=== PATIENT | female | born 1955 | race Caucasian/White ===

== ENCOUNTER → 2016-12-11 | Outpatient (CLI) | payer MEDICARE, BC ==
--- NOTE | 2016-12-11 09:08 | MR ---
EXAMINATION TYPE: MR brain wo con DATE OF EXAM: 12/11/2016 8:33 AM. COMPARISON: Previous study dated 11/15/2015. HISTORY: Headaches Technique: Multiplanar, multiecho imaging of the brain was obtained without intravenous contrast on a 3 Rasheeda magnet. FINDINGS: Midline structures are unremarkable. There is a normal craniocervical junction. Echoplanar diffusion imaging is normal. There are normal vascular flow voids. The orbits are normal. There is no evidence of a CP angle mass lesion. There are innumerable areas of T2 and FLAIR hyperinte nsity throughout the deep white matter tracts of the cerebral hemispheres. These are similar in size and number to the previous study. The largest 2 lesions are adjacent to the frontal horns of the late ral ventricles bilaterally. The lesion on the right measures 13.5 mm. The lesion on the left measures 10.6 mm. These are best seen on image 20 of the FLAIR dataset. The third, 8.4 mm lesion is seen in t he leigh radiata on the left. All of the other lesions are smaller than a centimeter. There is no ma ss effect, midline shift or intracranial blood. IMPRESSION: 1. NO ACUTE INTRACRANIAL ABNORMALITY. 2. MULTIPLE, STABLE FLAIR HYPERINTENSE LESIONS THROUGHOUT THE DEEP WHITE MATTER TRACTS OF THE CEREBRA L HEMISPHERES THESE ARE NONSPECIFIC.
== END | disposition home or self-care (01) ==
LOC: RADMRIMAIN 07:50
PROVIDERS: ATTEND Psychiatry & Neurology Neurology
DX: R90.82 White matter disease, unspecified (principal); H53.8 Other visual disturbances; R51 Headache
CPT/HCPCS: 70551

== ENCOUNTER → 2017-06-02 | Outpatient (CLI) | payer MEDICARE, BC ==
[2017-06-02 12:51] LABS: Blood Urea Nitrogen 20 mg/dL (7-17); Non-African American GFR(MDRD) >60 (>60 ml/min/1.73 sqM)
== END | disposition home or self-care (01) ==
LOC: LABWHC1 12:25
PROVIDERS: ATTEND Nurse Practitioner Acute Care
DX: M54.2 Cervicalgia (principal); R90.82 White matter disease, unspecified
CPT/HCPCS: 36415; 82565; 84520

== ENCOUNTER → 2017-06-04 | Outpatient (CLI) | payer MEDICARE, BC ==
--- NOTE | 2017-06-04 11:57 | MR ---
EXAMINATION TYPE: MR brain wo/w louiseine wo DATE OF EXAM: 06/04/2017 COMPARISON: Prior brain MRI dated 12/11/2016 HISTORY: WHITE MATTER CHANGE, CERVICAL PAIN TECHNIQUE: Multiplanar, multisequence images of the brain and brainstem is performed without and with IV contras t, utilizing 15 mL intravenous MultiHance , multiplanar multisequence imaging through the cervical sp ine without contrast. FINDINGS: There is motion on the exam. Brain: Diffusion weighted images demonstrate no evidence of a recent infarct. There is no extra-axia l fluid collection or significant interval change in white matter signal abnormality. Scattered hype rintensities are again noted in the deep, periventricular, juxtacortical white matter on inversion re covery and T2-weighted sequences, number lesions is too numerous to count. The ventricular system and cisternal spaces are normal in size and appearance. The brain volume is age appropriate. Midline structures demonstrate normal morphology. The craniocervical junction appears within normal limits. Post contrast images demonstrate no abnormal enhancement. The dural venous sinuses appear pa tent. The visualized sinuses are clear and the globes are intact. IMPRESSION: Essentially stable brain MRI Cervical spine MRI: Cervical vertebral bodies show preserved height and alignment. There is multileve l spondylosis present, there is endplate discogenic marrow signal change and loss of disc height and signal especially at C5-6 and C6-7. Anterolisthesis grade 1 C7-T1 with associated loss of disc height and signal. Probable hemangioma within the third cervical vertebral body. Cervical cord signal maint ained at C1-C5. C2-3: Within normal limits C3-4: Small central posterior disc protrusion causes minimal anterior mass effect on the thecal sac. Lateral extension of endplate disc complex towards the left causes some minimal foraminal encroachmen t. C4-5: Foraminal encroachment is present left greater than right, there is facet arthropathy change, n o significant central stenosis.. Small central posterior disc bulge causes minimal anterior mass effe ct on the thecal sac. C5-6: Posterior extension of endplate disc complex may contact the anterior cervical cord. Only minim al central stenosis. Lateral extension of endplate disc complex causes bilateral foraminal encroachme nt. C6-7: Posterior broad-based endplate disc extension is eccentric somewhat towards the right causing f oraminal encroachment right greater than left, mild anterior mass effect on the thecal sac but no sig nificant central stenosis. Some artifact is present at the C6-7 level, difficult to exclude signal co rd change. C7-T1: No significant central canal stenosis or foraminal encroachment, no evident disc herniation. IMPRESSION: Some limitations to the evaluation of the cervical cord as described. Multilevel degenera tive disc disease, foraminal encroachment. IMPRESSION:
== END | disposition home or self-care (01) ==
LOC: RADMRIMAIN 09:06
PROVIDERS: ATTEND Nurse Practitioner Acute Care
DX: M50.30 Other cervical disc degeneration, unspecified cervical region (principal); R90.82 White matter disease, unspecified
CPT/HCPCS: 70553; 72141; A9577

== ENCOUNTER → 2017-06-18 | Outpatient (CLI) | payer MEDICARE, BC ==
[2017-06-18 11:33] LABS: Basophils # (A) 0.1 k/uL (0-0.2); Basophils % (A) 1 %; CH 33.9; CHCM 31.6; Eosinophils # (A) 0.3 k/uL (0-0.7); Eosinophils % (A) 5 %; HCT 44.2 % (34.0-46.0); HDW 2.27; HGB 13.5 gm/dL (11.4-16.0); Luc % (Auto) 4; Lymphocytes # (A) 1.8 k/uL (1.0-4.8); Lymphocytes % (A) 32 %; MCH 32.9 pg (25.0-35.0); MCHC 30.5 g/dL (31.0-37.0); MCV 107.7 fL (80.0-100.0); Macrocytosis Moderate; Mean Platelet Volume 7.5; Monocytes # (A) 0.3 k/uL (0-1.0); Monocytes % (A) 5 %; Neutrophils % (A) 54 %; RBC 4.11 m/uL (3.80-5.40); RDW 14.4 % (11.5-15.5); WBC 5.7 k/uL (3.8-10.6); WBC (Perox) 5.93
[2017-06-18 12:05] LABS: ALT 60 U/L (9-52); AST 26 U/L (14-36); Alkaline Phosphatase 77 U/L (38-126); Anion Gap 9 mmol/L; Blood Urea Nitrogen 16 mg/dL (7-17); Calcium 9.4 mg/dL (8.4-10.2); Carbon Dioxide 25 mmol/L (22-30); Chloride 108 mmol/L (98-107); Glucose 95 mg/dL (74-99); Non-African American GFR(MDRD) >60 (>60 ml/min/1.73 sqM); Potassium 4.6 mmol/L (3.5-5.1); Sodium 142 mmol/L (137-145); Total Bilirubin 0.4 mg/dL (0.2-1.3); Total Protein 6.6 g/dL (6.3-8.2)
[2017-06-18 12:45] LABS: Vitamin B12 465 pg/mL (239-931)
== END | disposition home or self-care (01) ==
LOC: LABWHC1 10:50
PROVIDERS: ATTEND Nurse Practitioner Acute Care
DX: G35 Multiple sclerosis (principal); E55.9 Vitamin D deficiency, unspecified; R53.83 Other fatigue
CPT/HCPCS: 36415; 80053; 82306; 82607; 84439; 84443; 84481; 85025

== ENCOUNTER → 2017-07-05 | Outpatient (CLI) | payer MEDICARE, BC ==
--- NOTE | 2017-07-05 10:09 | MR ---
EXAMINATION TYPE: MR cervical spine w con DATE OF EXAM: 07/05/2017 COMPARISON: Cervical spine without contrast 06/04/2017 HISTORY: 61-year-old female with neck pain, Cervicalgia, white matter changes Technique: Multiplanar, multisequence images of the cervical spine were obtained after administration of 7 mL intravenous Gadavist gadolinium contrast. FINDINGS: No craniocervical junction abnormality, predental space widening, or prevertebral soft tissue swellin g. When correlated with prior noncontrast MRI, there is mild heterogeneity of marrow signal without susp icious bone marrow replacement. Moderate multilevel degenerative disc disease particularly in the mid to lower cervical spine with re demonstrated disc osteophyte complex at C5-C6 causing mild spinal canal stenosis with abutment and sl ight flattening of the ventral cord. Trace grade 1 anterolisthesis at C7-T1 is unchanged. Foraminal encroachment described on prior MRI. No abnormal enhancement within the spinal canal or suspicious cord enhancement is identified. IMPRESSION: 1. Only contrast enhanced images for correlation with patient's recent 06/04/2017 noncontrast MRI. 2. No abnormal cord enhancement or suspicious enhancement within the spinal canal. 3. Degenerative changes with variable foraminal encroachment described on prior MRI. Mild spinal aditi l stenosis at C5-C6 with abutment and slight flattening of the ventral cord at this level.
== END | disposition home or self-care (01) ==
LOC: RADMRIMAIN 08:49
PROVIDERS: ATTEND Nurse Practitioner Acute Care
DX: M48.02 Spinal stenosis, cervical region (principal)
CPT/HCPCS: 72142; A9581

== ENCOUNTER → 2017-11-16 | Outpatient (CLI) | payer MEDICARE ==
[2017-11-16 15:30] LABS: Basophils # (A) 0.1 k/uL (0-0.2); Basophils % (A) 1 %; Eosinophils # (A) 0.3 k/uL (0-0.7); Eosinophils % (A) 3 %; HCT 47.5 % (34.0-46.0); HGB 14.8 gm/dL (11.4-16.0); Lymphocytes # (A) 1.9 k/uL (1.0-4.8); Lymphocytes % (A) 23 %; MCH 32.1 pg (25.0-35.0); MCHC 31.2 g/dL (31.0-37.0); MCV 102.9 fL (80.0-100.0); Macrocytosis Slight; Mean Platelet Volume 7.4; Monocytes # (A) 0.4 k/uL (0-1.0); Monocytes % (A) 4 %; Neutrophils # (A) 5.4 k/uL (1.3-7.7); Neutrophils % (A) 66 %; Platelet Count 444 k/uL (150-450); RBC 4.62 m/uL (3.80-5.40); RDW 13.3 % (11.5-15.5); WBC 8.3 k/uL (3.8-10.6)
[2017-11-16 15:48] LABS: ALT 28 U/L (9-52); AST 26 U/L (14-36); Albumin 4.6 g/dL (3.5-5.0); Alkaline Phosphatase 79 U/L (38-126); Anion Gap 11 mmol/L; Blood Urea Nitrogen 21 mg/dL (7-17); Calcium 9.8 mg/dL (8.4-10.2); Carbon Dioxide 26 mmol/L (22-30); Chloride 102 mmol/L (98-107); Glucose 92 mg/dL (74-99); Potassium 4.7 mmol/L (3.5-5.1); Sodium 139 mmol/L (137-145); Total Bilirubin 0.6 mg/dL (0.2-1.3); Total Protein 7.5 g/dL (6.3-8.2)
== END | disposition home or self-care (01) ==
LOC: LABWHC1 14:00
PROVIDERS: ATTEND Nurse Practitioner Acute Care
DX: Z01.812 Encounter for preprocedural laboratory examination (principal); I49.9 Cardiac arrhythmia, unspecified; G35 Multiple sclerosis
CPT/HCPCS: 36415; 80053; 85025; 86787; 93005

== ENCOUNTER → 2017-12-05 | Outpatient (CLI) | payer MEDICARE | END | disposition home or self-care (01) | LOC: LABWHC1 15:25 | PROVIDERS: ATTEND Psychiatry & Neurology Neurology | DX: Z01.812 Encounter for preprocedural laboratory examination (principal); G35 Multiple sclerosis | CPT/HCPCS: 36415; 86787 ==

== ENCOUNTER → 2017-12-25 | Outpatient (CLI) | payer MEDICARE | END | disposition home or self-care (01) | LOC: LABWHC1 10:47 | PROVIDERS: ATTEND Nurse Practitioner Acute Care | DX: G35 Multiple sclerosis (principal) | CPT/HCPCS: 36415 ==

== ENCOUNTER → 2018-01-10 | Outpatient (CLI) | payer MEDICARE ==
[2018-01-10 10:40] LABS: Basophils % (A) 1 %; Eosinophils # (A) 0.3 k/uL (0-0.7); Eosinophils % (A) 7 %; HCT 41.7 % (34.0-46.0); HGB 13.1 gm/dL (11.4-16.0); Lymphocytes # (A) 0.6 k/uL (1.0-4.8); Lymphocytes % (A) 12 %; MCH 31.8 pg (25.0-35.0); MCHC 31.5 g/dL (31.0-37.0); MCV 100.8 fL (80.0-100.0); Macrocytosis Slight; Mean Platelet Volume 7.6; Monocytes # (A) 0.4 k/uL (0-1.0); Monocytes % (A) 9 %; Neutrophils # (A) 3.2 k/uL (1.3-7.7); Neutrophils % (A) 67 %; Platelet Count 400 k/uL (150-450); RBC 4.14 m/uL (3.80-5.40); RDW 14.2 % (11.5-15.5); WBC 4.7 k/uL (3.8-10.6)
== END | disposition home or self-care (01) ==
LOC: LABWHC1 09:58
PROVIDERS: ATTEND Psychiatry & Neurology Neurology
DX: G35 Multiple sclerosis (principal)
CPT/HCPCS: 36415; 85025

== ENCOUNTER → 2018-04-04 | Outpatient (CLI) | payer MEDICARE ==
[2018-04-04 12:37] LABS: Albumin 4.4 g/dL (3.5-5.0); Calcium 9.3 mg/dL (8.4-10.2); Potassium 4.9 mmol/L (3.5-5.1); Total Bilirubin 0.4 mg/dL (0.2-1.3); Total Protein 6.8 g/dL (6.3-8.2)
[2018-04-04 14:14] LABS: Basophils % (A) 1 %; Eosinophils # (A) 0.2 k/uL (0-0.7); Eosinophils % (A) 7 %; HCT 42.7 % (34.0-46.0); HGB 13.6 gm/dL (11.4-16.0); Hypochromasia Moderate; Lymphocytes # (A) 0.4 k/uL (1.0-4.8); Lymphocytes % (A) 11 %; MCH 34.4 pg (25.0-35.0); MCV 107.6 fL (80.0-100.0); Macrocytosis Moderate; Mean Platelet Volume 7.6; Monocytes # (A) 0.3 k/uL (0-1.0); Monocytes % (A) 9 %; Neutrophils # (A) 2.1 k/uL (1.3-7.7); Neutrophils % (A) 68 %; Platelet Count 327 k/uL (150-450); RBC 3.97 m/uL (3.80-5.40); RDW 13.4 % (11.5-15.5); WBC 3.1 k/uL (3.8-10.6)
== END | disposition home or self-care (01) ==
LOC: LABWHC1 11:34
PROVIDERS: ATTEND Nurse Practitioner Acute Care
DX: E55.9 Vitamin D deficiency, unspecified (principal); R53.83 Other fatigue
CPT/HCPCS: 36415; 80053; 82306; 85025

== ENCOUNTER → 2018-05-10 | Outpatient (CLI) | payer MEDICARE ==
[2018-05-10 09:08] LABS: HCT 42.3 % (34.0-46.0); HGB 13.6 gm/dL (11.4-16.0); MCHC 32.2 g/dL (31.0-37.0); Macrocytosis Slight; Mean Platelet Volume 6.9; Platelet Count 387 k/uL (150-450); RBC 4.13 m/uL (3.80-5.40); RDW 13.6 % (11.5-15.5); WBC 2.9 k/uL (3.8-10.6)
[2018-05-10 09:09] LABS: Blood Urea Nitrogen 11 mg/dL (7-17)
[2018-05-10 09:12] LABS: MCV 102.5 fL (80.0-100.0)
[2018-05-10 09:39] LABS: Basophils # (M) 0.03 k/uL (0-0.2); Eosinophils # (M) 0.29 k/uL (0-0.7); Lymphocytes # (M) 0.26 k/uL (1.0-4.8); Monocytes # (M) 0.35 k/uL (0-1.0); Neutrophils # (M) 1.97 k/uL (1.3-7.7); Neutrophils % (M) 68 %; Nucleated Red Blood Cells 0 /100 WBC (0-0); Total Cells Counted 100
--- NOTE | 2018-05-10 12:24 | MR ---
EXAMINATION TYPE: MR brain/cspine wo/w DATE OF EXAM: 05/10/2018 COMPARISON: Prior MR brain and cervical spine 06/04/2017 HISTORY: White matter changes / Cervicalgia TECHNIQUE: Multiplanar, multisequence images of the brain and brainstem is performed without and with IV contras t, utilizing 7 mL intravenous Gadavist . FINDINGS: Patient shows motion during the exam. Brain MRI: Diffusion weighted images demonstrate no evidence of a recent infarct or other diffusion abnormality. There is no extra-axial fluid collection. There are too numerous to count white matter lesions wit hin the subcortical, periventricular, juxtacortical, pericallosal white matter as on prior exam, prev iously estimated at approximately 50 lesions. Left frontal lesion measures 6 mm on axial image 24 and measures 5 mm on prior exam. Right frontal lesion measured approximately 6 x 6.5 mm on prior, on axi al image 23 of the current exam the lesion is thought to represent confluence foci and measures appro ximately 5 mm x 6.5 mm x 5.2 mm. The previously measured lesion on axial image 20 now measures approx imately 6.5 x 7.5 mm which is increased compared to prior when it measured 6.3 x 6.7mm. There are add itional lesions which have grown in size and become more conspicuous. The ventricular system and cist ernal spaces are stable in size and appearance. The brain volume is stable. Midline structures demonstrate normal morphology. The craniocervical junction appears within normal limits. Post contrast images demonstrate no abnormal enhancement, no lesions are seen to enhance alt artis there is artifact on the exam. The dural venous sinuses appear patent. The visualized sinuses a re clear and the globes are intact. Cervical spine MRI: There is no significant interval change. Posterior extension of endplate disc com plex C5-6 causes anterior mass effect on the thecal sac, neural foraminal encroachment as on previous exam, C6-7 also shows posterior extension of endplate disc complex with foraminal encroachment simil ar to prior. There is no abnormal enhancement grossly. IMPRESSION: Stable findings. Exam is somewhat limited. No evident enhancing lesions. Degenerative dis c disease.
== END | disposition home or self-care (01) ==
LOC: RADMRIMAIN 08:23
PROVIDERS: ATTEND Nurse Practitioner Acute Care
DX: M50.30 Other cervical disc degeneration, unspecified cervical region (principal); R90.82 White matter disease, unspecified; D72.810 Lymphocytopenia
CPT/HCPCS: 82565; 84520; 85025; 70553; 72156; 36415; A9581

== ENCOUNTER → 2018-06-04 | Outpatient (CLI) | payer MEDICARE ==
[2018-06-04 16:03] LABS: Basophils % (A) 1 %; Eosinophils # (A) 0.2 k/uL (0-0.7); Eosinophils % (A) 4 %; HCT 42.7 % (34.0-46.0); HGB 13.7 gm/dL (11.4-16.0); Lymphocytes # (A) 0.9 k/uL (1.0-4.8); Lymphocytes % (A) 19 %; MCH 32.7 pg (25.0-35.0); MCV 102.2 fL (80.0-100.0); Macrocytosis Slight; Mean Platelet Volume 6.7; Monocytes # (A) 0.3 k/uL (0-1.0); Monocytes % (A) 7 %; Neutrophils % (A) 67 %; Platelet Count 421 k/uL (150-450); RBC 4.18 m/uL (3.80-5.40); RDW 13.8 % (11.5-15.5); WBC 4.5 k/uL (3.8-10.6)
== END | disposition home or self-care (01) ==
LOC: LABWHC1 15:34
PROVIDERS: ATTEND Nurse Practitioner Acute Care
DX: Z51.81 Encounter for therapeutic drug level monitoring (principal)
CPT/HCPCS: 36415; 85025

== ENCOUNTER → 2018-08-22 | Outpatient (CLI) | payer MEDICARE ==
[2018-08-22 12:38] LABS: Basophils % (A) 1 %; Eosinophils # (A) 0.2 k/uL (0-0.7); Eosinophils % (A) 5 %; HCT 42.1 % (34.0-46.0); HGB 12.8 gm/dL (11.4-16.0); Hypochromasia Slight; Lymphocytes # (A) 0.4 k/uL (1.0-4.8); Lymphocytes % (A) 9 %; MCH 32.6 pg (25.0-35.0); MCHC 30.4 g/dL (31.0-37.0); MCV 107.2 fL (80.0-100.0); Macrocytosis Moderate; Monocytes # (A) 0.3 k/uL (0-1.0); Monocytes % (A) 6 %; Neutrophils # (A) 3.5 k/uL (1.3-7.7); Neutrophils % (A) 76 %; Platelet Count 401 k/uL (150-450); RBC 3.93 m/uL (3.80-5.40); RDW 13.6 % (11.5-15.5); WBC 4.7 k/uL (3.8-10.6)
[2018-08-22 19:02] LABS: Albumin 4.3 g/dL (3.80-4.90); Albumin/Globulin Ratio 2.26 (1.20-2.10); Anion Gap 3.5 mmol/L (4.00-12.00); Calcium 8.9 mg/dL (8.7-10.3); Carbon Dioxide 28.5 mmol/L (21.6-31.8); Globulin 1.9 g/dL (2.1-3.7); Potassium 4.4 mmol/L (3.5-5.5); Total Bilirubin 0.4 mg/dL (0.2-1.2); Total Protein 6.2 g/dL (6.2-8.2)
[2018-08-22 22:26] LABS: Vitamin D 25 Hydroxy 35.4 ng/mL (30.0-100.0)
== END ==
LOC: LABWHC1 11:17
PROVIDERS: ATTEND Nurse Practitioner Acute Care
DX: E55.9 Vitamin D deficiency, unspecified (principal); R53.83 Other fatigue; Z51.81 Encounter for therapeutic drug level monitoring
CPT/HCPCS: 36415; 80053; 82306; 82607; 84207; 85025

== ENCOUNTER → 2018-10-17 | Outpatient (CLI) | payer MEDICARE ==
[2018-10-17 17:04] LABS: Basophils % (A) 0 %; Eosinophils # (A) 0.2 k/uL (0-0.7); Eosinophils % (A) 5 %; HCT 42.9 % (34.0-46.0); HGB 13.3 gm/dL (11.4-16.0); Lymphocytes # (A) 0.3 k/uL (1.0-4.8); Lymphocytes % (A) 8 %; MCH 32.9 pg (25.0-35.0); MCHC 31.1 g/dL (31.0-37.0); MCV 105.8 fL (80.0-100.0); Macrocytosis Moderate; Mean Platelet Volume 7.6; Monocytes # (A) 0.3 k/uL (0-1.0); Monocytes % (A) 7 %; Neutrophils # (A) 2.9 k/uL (1.3-7.7); Neutrophils % (A) 76 %; Platelet Count 420 k/uL (150-450); RBC 4.06 m/uL (3.80-5.40); RDW 13.2 % (11.5-15.5); WBC 3.8 k/uL (3.8-10.6)
[2018-10-18 03:19] LABS: Vitamin D 25 Hydroxy 31.6 ng/mL (30.0-100.0)
[2018-10-18 03:25] LABS: Albumin 4.4 g/dL (3.80-4.90); Albumin/Globulin Ratio 2.59 (1.20-2.10); Anion Gap 7.3 mmol/L (4.00-12.00); Calcium 8.9 mg/dL (8.7-10.3); Carbon Dioxide 24.7 mmol/L (21.6-31.8); Globulin 1.7 g/dL (1.6-3.3); Potassium 4.7 mmol/L (3.5-5.5); Total Bilirubin 0.4 mg/dL (0.3-1.2); Total Protein 6.1 g/dL (6.2-8.2)
== END | disposition home or self-care (01) ==
LOC: LABWHC1 16:23
PROVIDERS: ATTEND Nurse Practitioner Acute Care
DX: R53.83 Other fatigue (principal); E55.9 Vitamin D deficiency, unspecified; Z51.81 Encounter for therapeutic drug level monitoring
CPT/HCPCS: 36415; 80053; 82306; 82607; 84207; 85025

== ENCOUNTER → 2018-11-18 | Outpatient (CLI) | payer MEDICARE ==
[2018-11-18 13:10] LABS: Basophils % (A) 0 %; Eosinophils # (A) 0.3 k/uL (0-0.7); Eosinophils % (A) 3 %; HCT 45.2 % (34.0-46.0); HGB 14.1 gm/dL (11.4-16.0); Lymphocytes # (A) 0.6 k/uL (1.0-4.8); Lymphocytes % (A) 7 %; MCH 32.1 pg (25.0-35.0); MCHC 31.1 g/dL (31.0-37.0); MCV 103.2 fL (80.0-100.0); Macrocytosis Slight; Mean Platelet Volume 6.7; Monocytes # (A) 0.5 k/uL (0-1.0); Monocytes % (A) 6 %; Neutrophils # (A) 6.3 k/uL (1.3-7.7); Neutrophils % (A) 82 %; Platelet Count 440 k/uL (150-450); RBC 4.38 m/uL (3.80-5.40); RDW 13.9 % (11.5-15.5); WBC 7.7 k/uL (3.8-10.6)
== END ==
LOC: LABWHC1 11:59
PROVIDERS: ATTEND Nurse Practitioner Acute Care
DX: Z51.81 Encounter for therapeutic drug level monitoring (principal); R53.83 Other fatigue
CPT/HCPCS: 36415; 85025

== ENCOUNTER 2019-01-23 14:55 | Emergency (ER) | payer MEDICARE ==
[2019-01-23 15:07] VITALS: RESP 18; TEMP 97.5
[2019-01-23] MEDS ORDERED: HYDROmorphone 0.5 MG/0.5 ML SYRINGE IVP STA (15:35)
[2019-01-23] MEDS ORDERED: diphenhydrAMINE 50 MG/ML 1 ML VIAL IVP STA (15:35)
[2019-01-23] MEDS ORDERED: SODIUM CHLORIDE 0.9% 500 ML 500 ML IV STA (15:35)
[2019-01-23] MEDS ORDERED: METOCLOPRAMIDE 5 MG/ML 2 ML VIAL IVP STA (15:35)
--- NOTE | 2019-01-23 15:38 | ED ---
General Adult HPI - General Source: patient, RN notes reviewed, old records reviewed Mode of arrival: ambulatory Limitations: no limitations <Andrea Rosales - Last Filed: 01/23/19 16:35> <Prince Edwards - Last Filed: 01/23/19 18:18> - General Chief complaint: Recheck/Abnormal Lab/Rx Stated complaint: elevated BP Time Seen by Provider: 01/23/19 15:30 - History of Present Illness Initial comments: 63 -year-old female presenting with chief complaint of hypertension. Patient has history of hypertension, currently on Benzapril, losartan, metoprolol. She states she has had elevated pressure over the past one week. She was seen by her neurologist, and recommended that she monitor her blood pressure and presented for evaluation. She does see a neurologist for history of MS and chronic headaches. She states she's had worsening occipital headache over the past week as well. She's had some nausea without significant vomiting. Denies any focal numbness or weakness. Denies vision changes. Denies chest pain or dyspnea. Denies abdominal pain. (Andrea Rosales) - Related Data Home Medications Medication Instructions Recorded Confirmed DULoxetine HCL [Cymbalta] 60 mg PO BID 09/18/16 01/23/19 Metoprolol Succinate [Toprol XL] 100 mg PO DAILY 09/18/16 01/23/19 Topiramate [Topamax] 100 mg PO BID 09/18/16 01/23/19 oxyCODONE-APAP 10-325MG [Percocet 1 tab PO Q6HR PRN 09/18/16 01/23/19 10-325 mg] Benazepril HCl 20 mg PO DAILY 05/21/17 01/23/19 Ascorbic Acid [Vitamin C] 1,000 mg PO DAILY 01/23/19 01/23/19 Butalb/APAP/Caff 50-325-40Mg 1 tab PO Q6H PRN 01/23/19 01/23/19 [Fioricet 50-325-40] Cholecalciferol [Vitamin D3] 2,000 unit PO DAILY 01/23/19 01/23/19 Fingolimod HCl [Gilenya] 0.5 mg PO HS 01/23/19 01/23/19 Levothyroxine Sodium [Synthroid] 125 mcg PO DAILY 01/23/19 01/23/19 Modafinil [Provigil] 100 mg PO BID 01/23/19 01/23/19 Multivitamins, Thera [Multivitamin 1 tab PO DAILY 01/23/19 01/23/19 (formulary)] Omeprazole 20 mg PO DAILY 01/23/19 01/23/19 Primidone [Mysoline] 50 mg PO HS 01/23/19 01/23/19 Vitamin A 8,000 unit PO DAILY 01/23/19 01/23/19 Vitamin C/Biotin [Hair, Skin and 1 tab PO DAILY 01/23/19 01/23/19 Nails] tiZANidine HCL [Zanaflex] 4 mg PO BID PRN 01/23/19 01/23/19 Previous Rx's Medication Instructions Recorded Losartan [Cozaar] 50 mg PO BID #60 tab 11/19/15 Allergies Allergy/AdvReac Type Severity Reaction Status Date / Time No Known Allergies Allergy Verified 01/23/19 16:29 Review of Systems ROS Other: All systems not noted in ROS Statement are negative. <Andrea Rosales - Last Filed: 01/23/19 16:35> ROS Other: All systems not noted in ROS Statement are negative. <Prince Edwards - Last Filed: 01/23/19 18:18> ROS Statement: Those systems with pertinent positive or pertinent negative responses have been documented in the HPI. Past Medical History Past Medical History: Fibromyalgia, GERD/Reflux, Hypertension, Thyroid Disorder Additional Past Medical History / Comment(s): Lung cancer, Thyroid cancer, Known cancerous lesions to right lung - no tx yet ., LAST CHEMO & RADIATION APPROX 8 YEARS AGO., MIGRAINES, HX OF DIVERTICULITIS. History of Any Multi-Drug Resistant Organisms: None Reported Past Surgical History: Hysterectomy, Tubal Ligation Additional Past Surgical History / Comment(s): thyroidectomy for ca, three lumpectomies from breast, ectopic , left frontal lobe of lung, portion of colon removed. Past Anesthesia/Blood Transfusion Reactions: No Reported Reaction Past Psychological History: Anxiety Smoking Status: Current every day smoker Past Alcohol Use History: Occasional Past Drug Use History: None Reported - Past Family History Mother Family Medical History: Cancer, Diabetes Mellitus, Fibromyalgia, Thyroid Disorder Additional Family Medical History / Comment(s): heart issues. THYROID CANCER Father Family Medical History: Cancer Additional Family Medical History / Comment(s): lung cancer <Andera Rosales N - Last Filed: 01/23/19 16:35> General Exam Limitations: no limitations General appearance: alert, in no apparent distress Head exam: Present: atraumatic, normocephalic Eye exam: Present: normal appearance, PERRL, EOMI ENT exam: Present: normal exam Neck exam: Present: normal inspection. Absent: tenderness, meningismus Respiratory exam: Present: normal lung sounds bilaterally. Absent: respiratory distress, wheezes Cardiovascular Exam: Present: regular rate, normal rhythm GI/Abdominal exam: Present: soft. Absent: distended, tenderness Extremities exam: Present: normal inspection, normal capillary refill. Absent: pedal edema Neurological exam: Present: alert, oriented X3, CN II-XII intact. Absent: motor sensory deficit Psychiatric exam: Present: normal affect, normal mood Skin exam: Present: warm, dry, intact. Absent: cyanosis, diaphoretic <Andrea Rosales - Last Filed: 01/23/19 16:35> General appearance: alert, in no apparent distress Head exam: Present: atraumatic, normocephalic, normal inspection Eye exam: Present: normal appearance, PERRL, EOMI. Absent: scleral icterus, conjunctival injection, periorbital swelling ENT exam: Present: normal exam, mucous membranes moist Neck exam: Present: normal inspection. Absent: tenderness, meningismus, lymphadenopathy Respiratory exam: Present: normal lung sounds bilaterally. Absent: respiratory distress, wheezes, rales, rhonchi, stridor Cardiovascular Exam: Present: regular rate, normal rhythm, normal heart sounds. Absent: systolic murmur, diastolic murmur, rubs, gallop, clicks GI/Abdominal exam: Present: soft, normal bowel sounds. Absent: distended, tenderness, guarding, rebound, rigid Extremities exam: Present: normal inspection, full ROM, normal capillary refill. Absent: tenderness, pedal edema, joint swelling, calf tenderness Back exam: Present: normal inspection Neurological exam: Present: alert, oriented X3, CN II-XII intact Psychiatric exam: Present: normal affect, normal mood Skin exam: Present: warm, dry, intact, normal color. Absent: rash <Prince Edwards - Last Filed: 01/23/19 18:18> Course <Andrea Rosales - Last Filed: 01/23/19 16:35> Vital Signs 01/23/19 01/23/19 01/23/19 15:04 17:07 17:55 Temperature 97.5 F L Pulse Rate 66 61 72 Respiratory 18 18 18 Rate Blood Pressure 181/103 185/106 190/105 O2 Sat by Pulse 98 98 100 Oximetry - Reevaluation(s) Reevaluation #1: 01/23/19 1700 Patient's care signed out to Dr. Edwards at shift change (Andrea Rosales) EKG Findings - EKG Comments: EKG Findings:: EKG: Normal sinus rhythm, rate of 63, NE interval 132, QRS duration 88, QTC 417, no ST segment changes <Andrea Rosales - Last Filed: 01/23/19 16:35> Medical Decision Making - Lab Data Result diagrams: 01/23/19 16:00 01/23/19 16:00 <Andrea Rosales - Last Filed: 01/23/19 16:35> - Lab Data Result diagrams: 01/23/19 16:00 01/23/19 16:00 - Radiology Data Radiology results: report reviewed (CT brain negative for acute disease), image reviewed <Prince Edwards - Last Filed: 01/23/19 18:18> - Medical Decision Making 61 female the ER for evaluation, elevated blood pressure. Headache. CT labwork are normal. Patient's blood pressures improved here will follow-up with primary care for further blood pressure management (Prince Edwards) - Lab Data Lab Results 01/23/19 01/23/19 01/23/19 Range/Units 16:00 16:00 16:00 WBC 3.9 (3.8-10.6) k/uL RBC 4.23 (3.80-5.40) m/uL Hgb 13.6 (11.4-16.0) gm/dL Hct 41.8 (34.0-46.0) % MCV 98.8 (80.0-100.0) fL MCH 32.3 (25.0-35.0) pg MCHC 32.7 (31.0-37.0) g/dL RDW 14.3 (11.5-15.5) % Plt Count 439 (150-450) k/uL Neutrophils % 67 % Lymphocytes % 13 % Monocytes % 10 % Eosinophils % 7 % Basophils % 1 % Neutrophils # 2.6 (1.3-7.7) k/uL Lymphocytes # 0.5 L (1.0-4.8) k/uL Monocytes # 0.4 (0-1.0) k/uL Eosinophils # 0.3 (0-0.7) k/uL Basophils # 0.0 (0-0.2) k/uL PT 10.7 (9.0-12.0) sec INR 1.0 (<1.2) APTT 27.5 (22.0-30.0) sec Sodium 138 (137-145) mmol/L Potassium 5.9 H (3.5-5.1) mmol/L Chloride 103 (98-107) mmol/L Carbon Dioxide 26 (22-30) mmol/L Anion Gap 9 mmol/L BUN 15 (7-17) mg/dL Creatinine 0.70 (0.52-1.04) mg/dL Est GFR (CKD-EPI)AfAm >90 (>60 ml/min/1.73 sqM) Est GFR (CKD-EPI)NonAf >90 (>60 ml/min/1.73 sqM) Glucose 79 (74-99) mg/dL Calcium 9.5 (8.4-10.2) mg/dL Magnesium 1.9 (1.6-2.3) mg/dL Total Bilirubin 0.9 (0.2-1.3) mg/dL AST 42 H (14-36) U/L ALT 37 (9-52) U/L Alkaline Phosphatase 71 (38-126) U/L Troponin I (0.000-0.034) ng/mL Total Protein 7.4 (6.3-8.2) g/dL Albumin 4.6 (3.5-5.0) g/dL 01/23/19 Range/Units 16:00 WBC (3.8-10.6) k/uL RBC (3.80-5.40) m/uL Hgb (11.4-16.0) gm/dL Hct (34.0-46.0) % MCV (80.0-100.0) fL MCH (25.0-35.0) pg MCHC (31.0-37.0) g/dL RDW (11.5-15.5) % Plt Count (150-450) k/uL Neutrophils % % Lymphocytes % % Monocytes % % Eosinophils % % Basophils % % Neutrophils # (1.3-7.7) k/uL Lymphocytes # (1.0-4.8) k/uL Monocytes # (0-1.0) k/uL Eosinophils # (0-0.7) k/uL Basophils # (0-0.2) k/uL PT (9.0-12.0) sec INR (<1.2) APTT (22.0-30.0) sec Sodium (137-145) mmol/L Potassium (3.5-5.1) mmol/L Chloride (98-107) mmol/L Carbon Dioxide (22-30) mmol/L Anion Gap mmol/L BUN (7-17) mg/dL Creatinine (0.52-1.04) mg/dL Est GFR (CKD-EPI)AfAm (>60 ml/min/1.73 sqM) Est GFR (CKD-EPI)NonAf (>60 ml/min/1.73 sqM) Glucose (74-99) mg/dL Calcium (8.4-10.2) mg/dL Magnesium (1.6-2.3) mg/dL Total Bilirubin (0.2-1.3) mg/dL AST (14-36) U/L ALT (9-52) U/L Alkaline Phosphatase (38-126) U/L Troponin I <0.012 (0.000-0.034) ng/mL Total Protein (6.3-8.2) g/dL Albumin (3.5-5.0) g/dL Disposition <Andrea Rosales - Last Filed: 01/23/19 16:35> Is patient prescribed a controlled substance at d/c from ED?: No <Prince Edwards - Last Filed: 01/23/19 18:18> Clinical Impression: Uncontrolled hypertension Disposition: HOME SELF-CARE Condition: Good Instructions (If sedation given, give patient instructions): Hypertension (ED) Referrals: Hilario Tierney MD [Primary Care Provider] - 1-2 days
[2019-01-23 16:09] LABS: Basophils % (A) 1 %; Eosinophils # (A) 0.3 k/uL (0-0.7); Eosinophils % (A) 7 %; HCT 41.8 % (34.0-46.0); HGB 13.6 gm/dL (11.4-16.0); Lymphocytes # (A) 0.5 k/uL (1.0-4.8); Lymphocytes % (A) 13 %; MCH 32.3 pg (25.0-35.0); MCHC 32.7 g/dL (31.0-37.0); MCV 98.8 fL (80.0-100.0); Mean Platelet Volume 8.8; Monocytes # (A) 0.4 k/uL (0-1.0); Monocytes % (A) 10 %; Neutrophils # (A) 2.6 k/uL (1.3-7.7); Neutrophils % (A) 67 %; Platelet Count 439 k/uL (150-450); RBC 4.23 m/uL (3.80-5.40); RDW 14.3 % (11.5-15.5); WBC 3.9 k/uL (3.8-10.6)
[2019-01-23 16:21] LABS: ALT 37 U/L (9-52); AST 42 U/L (14-36); Albumin 4.6 g/dL (3.5-5.0); Alkaline Phosphatase 71 U/L (38-126); Anion Gap 9 mmol/L; Blood Urea Nitrogen 15 mg/dL (7-17); Calcium 9.5 mg/dL (8.4-10.2); Carbon Dioxide 26 mmol/L (22-30); Chloride 103 mmol/L (98-107); Glucose 79 mg/dL (74-99); Magnesium 1.9 mg/dL (1.6-2.3); Potassium 5.9 mmol/L (3.5-5.1); Sodium 138 mmol/L (137-145); Total Bilirubin 0.9 mg/dL (0.2-1.3); Total Protein 7.4 g/dL (6.3-8.2)
[2019-01-23] MEDS ORDERED: LOSARTAN 50 MG TAB PO STA (16:34)
[2019-01-23] MEDS ORDERED: SODIUM CHLORIDE 0.9% 500 ML 500 ML IV ONE (16:34)
[2019-01-23 16:37] LABS: Partial Thromboplastin Time 27.5 sec (22.0-30.0); Prothrombin Time 10.7 sec (9.0-12.0)
--- NOTE | 2019-01-23 16:46 | XR ---
EXAMINATION: XR chest 2V DATE AND TIME: 01/23/2019 4:28 PM CLINICAL INDICATION: PHH; Chest Pain TECHNIQUE: Departmental protocol COMPARISON: 11/13/2015 FINDINGS: There is no pulmonary edema or atelectasis or evidence of pneumonia. There are a few scattered subcen timeter pulmonary opacities, one superimposed over the the neck and right anterior rib shadow, and an other over the mid right lower lung zone. The former was not definitely seen on the prior study, but overlying EKG leads at that time are noted. The latter was seen on the prior study and appears stable . Nonemergent chest CT follow-up will be useful to compare the lung parenchyma with fat of the chest CT of 09/20/2017. The pleural spaces are negative. The cardiac silhouette is not enlarged. Left hilar mediastinal clips redemonstrated. The skeletal structures and soft tissues are negative for acute findings. IMPRESSION: NO ACUTE PROCESS. Incidental: Scattered subcentimeter pulmonary opacities.
--- NOTE | 2019-01-23 17:41 | CT ---
EXAMINATION: CT brain wo con DATE AND TIME: 01/23/2019 5:25 PM CLINICAL INDICATION: PHH; Pain TECHNIQUE: Standard departmental protocol.; 1099.4; COMPARISON: CT 11/13/2015 FINDINGS: The calvarium is intact. There is no intracranial hemorrhage. There is no intracranial mass or mass effect. No definite new intra-axial or extra-axial attenuation defect. The paranasal sinuses, middle ear cavities, and mastoid sinus air cells are clear. The orbits are unremarkable. IMPRESSION: NO ACUTE PROCESS.
[2019-01-23] MEDS ORDERED: LABETALOL 5 MG/ML VIAL MDV IVP STA (18:17)
[2019-01-23] MEDS ORDERED: LABETALOL SYRINGE 5 MG/ML IVP STA (18:17)
[2019-01-23] MEDS ORDERED: MORPHINE SULFATE 4 MG/ML SYRINGE IVP STA (18:19)
[2019-01-23 19:10] VITALS: BP 153/72; PULSE 72
== END 2019-01-23 19:08 | disposition home or self-care (01) ==
LOC: EC 14:55
DX: I10 Essential (primary) hypertension (principal); K21.9 Gastro-esophageal reflux disease without esophagitis; G43.909 Migraine, unspecified, not intractable, without status migrainosus; M79.7 Fibromyalgia; F41.9 Anxiety disorder, unspecified; F17.200 Nicotine dependence, unspecified, uncomplicated; Z85.850 Personal history of malignant neoplasm of thyroid; Z85.118 Personal history of other malignant neoplasm of bronchus and lung; Z79.890 Hormone replacement therapy; Z79.899 Other long term (current) drug therapy; Z53.8 Procedure and treatment not carried out for other reasons
CPT/HCPCS: 36415; 80053; 83735; 84484; 85025; 85610; 85730; 71046; 70450; 99284; 96374; 96375 ×4; 96361 ×3; J2270; J1200; J2765; J1170

== ENCOUNTER → 2019-01-30 | Outpatient (CLI) | payer MEDICARE ==
[2019-01-30 15:14] LABS: Basophils % (A) 1 %; Eosinophils # (A) 0.2 k/uL (0-0.7); Eosinophils % (A) 5 %; HCT 41.3 % (34.0-46.0); HGB 13.5 gm/dL (11.4-16.0); Lymphocytes # (A) 0.3 k/uL (1.0-4.8); Lymphocytes % (A) 9 %; MCH 33.7 pg (25.0-35.0); MCHC 32.6 g/dL (31.0-37.0); MCV 103.6 fL (80.0-100.0); Macrocytosis Slight; Mean Platelet Volume 7.5; Monocytes # (A) 0.2 k/uL (0-1.0); Monocytes % (A) 7 %; Neutrophils # (A) 2.5 k/uL (1.3-7.7); Neutrophils % (A) 74 %; Platelet Count 404 k/uL (150-450); RBC 3.99 m/uL (3.80-5.40); RDW 14.7 % (11.5-15.5); WBC 3.3 k/uL (3.8-10.6)
[2019-01-30 20:25] LABS: Albumin 4.5 g/dL (3.80-4.90); Albumin/Globulin Ratio 2.25 (1.60-3.17); Anion Gap 7.9 mmol/L (4.00-12.00); Calcium 9.3 mg/dL (8.7-10.3); Carbon Dioxide 25.1 mmol/L (21.6-31.8); Potassium 4.7 mmol/L (3.5-5.5); Total Bilirubin 0.4 mg/dL (0.3-1.2); Total Protein 6.5 g/dL (6.2-8.2)
== END | disposition home or self-care (01) ==
LOC: LABWHC1 13:33
PROVIDERS: ATTEND Nurse Practitioner Acute Care
DX: E55.9 Vitamin D deficiency, unspecified (principal); G35 Multiple sclerosis
CPT/HCPCS: 36415; 80053; 82306; 85025

== ENCOUNTER → 2019-02-05 | Outpatient (CLI) | payer MEDICARE ==
--- NOTE | 2019-02-05 15:54 | NM ---
EXAMINATION TYPE: NM DatScan Brain SPECT DATE OF EXAM: 02/05/2019 COMPARISON: NONE HISTORY: Tremors TECHNIQUE: 10 drops of Lugol's solution was administered 1 hour prior to injection as a thyroid bloc natalie agent. After the administration of 4.5 mCi I-123 Ioflupane DaTscan. Images obtained [address] injection. SPECT images of the brain were acquired with axial and coronal reconstructions. FINDINGS: The axial SPECT images demonstrate increased background activity and normal activity within the bilateral striata. IMPRESSION: There is normal uptake within the bilateral striata.
== END | disposition home or self-care (01) ==
LOC: RADNMMAIN 10:55
PROVIDERS: ATTEND Psychiatry & Neurology Neurology
DX: G25.0 Essential tremor (principal)
CPT/HCPCS: 78607; A9584

== ENCOUNTER → 2019-02-20 | Outpatient (CLI) | payer MEDICARE ==
[2019-02-20 12:32] LABS: Basophils % (A) 1 %; Eosinophils # (A) 0.3 k/uL (0-0.7); Eosinophils % (A) 4 %; HCT 43.4 % (34.0-46.0); HGB 13.3 gm/dL (11.4-16.0); Lymphocytes # (A) 0.2 k/uL (1.0-4.8); Lymphocytes % (A) 3 %; MCH 32.3 pg (25.0-35.0); MCHC 30.8 g/dL (31.0-37.0); MCV 104.9 fL (80.0-100.0); Macrocytosis Moderate; Mean Platelet Volume 7.5; Monocytes # (A) 0.3 k/uL (0-1.0); Monocytes % (A) 5 %; Neutrophils # (A) 5.9 k/uL (1.3-7.7); Neutrophils % (A) 85 %; Platelet Count 397 k/uL (150-450); RBC 4.13 m/uL (3.80-5.40); RDW 15.1 % (11.5-15.5)
== END ==
LOC: LABWHC1 11:41
PROVIDERS: ATTEND Psychiatry & Neurology Neurology
DX: G35 Multiple sclerosis (principal)
CPT/HCPCS: 36415; 85025

== ENCOUNTER → 2019-03-21 | Outpatient (CLI) | payer MEDICARE ==
[2019-03-21 11:24] LABS: Basophils # (A) 0.1 k/uL (0-0.2); Basophils % (A) 1 %; Eosinophils # (A) 0.2 k/uL (0-0.7); Eosinophils % (A) 4 %; HGB 13.5 gm/dL (11.4-16.0); Hypochromasia Slight; Lymphocytes # (A) 0.9 k/uL (1.0-4.8); Lymphocytes % (A) 15 %; MCH 31.9 pg (25.0-35.0); MCHC 30.1 g/dL (31.0-37.0); MCV 106.1 fL (80.0-100.0); Macrocytosis Moderate; Mean Platelet Volume 6.7; Monocytes # (A) 0.3 k/uL (0-1.0); Monocytes % (A) 5 %; Neutrophils # (A) 4.4 k/uL (1.3-7.7); Neutrophils % (A) 72 %; Platelet Count 438 k/uL (150-450); RBC 4.24 m/uL (3.80-5.40); RDW 14.4 % (11.5-15.5)
== END ==
LOC: LABWHC1 10:42
PROVIDERS: ATTEND Nurse Practitioner Acute Care
DX: G35 Multiple sclerosis (principal)
CPT/HCPCS: 36415; 85025

== ENCOUNTER → 2019-05-12 | Outpatient (CLI) | payer MEDICARE ==
[2019-05-12 15:27] LABS: Basophils # (A) 0.1 k/uL (0-0.2); Basophils % (A) 1 %; Eosinophils # (A) 0.3 k/uL (0-0.7); Eosinophils % (A) 5 %; HCT 45.2 % (34.0-46.0); HGB 13.9 gm/dL (11.4-16.0); Lymphocytes # (A) 1.8 k/uL (1.0-4.8); Lymphocytes % (A) 34 %; MCH 32.2 pg (25.0-35.0); MCHC 30.7 g/dL (31.0-37.0); MCV 104.7 fL (80.0-100.0); Macrocytosis Slight; Mean Platelet Volume 6.8; Monocytes # (A) 0.3 k/uL (0-1.0); Monocytes % (A) 5 %; Neutrophils # (A) 2.8 k/uL (1.3-7.7); Neutrophils % (A) 52 %; Platelet Count 443 k/uL (150-450); RBC 4.32 m/uL (3.80-5.40); RDW 13.8 % (11.5-15.5); WBC 5.4 k/uL (3.8-10.6)
[2019-05-13 01:02] LABS: African American GFR (CKD) 79.4 (60.0-200.0); Albumin 4.4 g/dL (3.80-4.90); Albumin/Globulin Ratio 2.2 (1.60-3.17); BUN/Creat Ratio 13.33 Ratio (12.00-20.00); Calcium 9.3 mg/dL (8.7-10.3); LDL Cholesterol,Calculated 98.6 mg/dL (0.0-131.0); Potassium 5.4 mmol/L (3.5-5.5); Total Bilirubin 0.5 mg/dL (0.3-1.2); Total Protein 6.4 g/dL (6.2-8.2); VLDL Calculation 32.4 mg/dL (5.00-40.00)
== END | disposition home or self-care (01) ==
LOC: LABWHC1 15:05
PROVIDERS: ATTEND Nurse Practitioner Acute Care
DX: E55.9 Vitamin D deficiency, unspecified (principal); G35 Multiple sclerosis; R55 Syncope and collapse
CPT/HCPCS: 36415; 80053; 80061; 82306; 82607; 83090; 84207; 85025

== ENCOUNTER 2019-11-23 13:43 | Emergency (ER) | payer MEDICARE ==
[2019-11-23 14:26] VITALS: RESP 18
[2019-11-23] MEDS ORDERED: HYDROmorphone 0.5 MG/0.5 ML SYRINGE IVP STA (15:01)
[2019-11-23] MEDS ORDERED: hydrALAZINE HCL 20 MG/ML 1 ML VIAL IVP STA (15:03)
[2019-11-23 16:20] LABS: Basophils # (A) 0.1 k/uL (0-0.2); Basophils % (A) 1 %; Eosinophils # (A) 0.2 k/uL (0-0.7); Eosinophils % (A) 1 %; HCT 43.6 % (34.0-46.0); HGB 13.6 gm/dL (11.4-16.0); Lymphocytes # (A) 2.1 k/uL (1.0-4.8); Lymphocytes % (A) 14 %; MCH 32.1 pg (25.0-35.0); MCHC 31.1 g/dL (31.0-37.0); MCV 103.1 fL (80.0-100.0); Macrocytosis Slight; Mean Platelet Volume 7.4; Monocytes # (A) 0.8 k/uL (0-1.0); Monocytes % (A) 6 %; Neutrophils # (A) 11.1 k/uL (1.3-7.7); Neutrophils % (A) 77 %; Platelet Count 453 k/uL (150-450); RBC 4.23 m/uL (3.80-5.40); RDW 13.3 % (11.5-15.5); WBC 14.4 k/uL (3.8-10.6)
[2019-11-23 16:31] LABS: ALT 28 U/L (4-34); AST 20 U/L (14-36); African American GFR (CKD) >90 (>60 ml/min/1.73 sqM); Albumin 4.3 g/dL (3.5-5.0); Alkaline Phosphatase 73 U/L (38-126); Anion Gap 6 mmol/L; Blood Urea Nitrogen 17 mg/dL (7-17); Calcium 9.1 mg/dL (8.4-10.2); Carbon Dioxide 30 mmol/L (22-30); Chloride 103 mmol/L (98-107); Glucose 88 mg/dL (74-99); Non-African American GFR(CKD) 81 (>60 ml/min/1.73 sqM); Potassium 4.5 mmol/L (3.5-5.1); Sodium 139 mmol/L (137-145); Total Bilirubin 0.5 mg/dL (0.2-1.3); Total Protein 7.1 g/dL (6.3-8.2)
[2019-11-23 16:33] LABS: Partial Thromboplastin Time 22.5 sec (22.0-30.0); Prothrombin Time 10.7 sec (9.0-12.0)
--- NOTE | 2019-11-23 16:46 | CT ---
EXAMINATION TYPE: CT brain wo con DATE OF EXAM: 11/23/2019 COMPARISON: 01/23/2019 HISTORY: headache, weakness CT DLP: 1090.4 mGycm Automated exposure control for dose reduction was used. TECHNIQUE: CT scan of the head is performed without contrast. FINDINGS: There is no acute intracranial hemorrhage or midline shift identified. There is diffuse v entricular and sulcal prominence consistent with diffuse age-related cerebral atrophy. There is low- attenuation in the periventricular white matter consistent with chronic small vessel ischemic change. The globes are intact and the visualized sinuses are clear. Rightward nasal septal deviation and small rightward nasal septal spur are incidentally seen. IMPRESSION: No acute intracranial hemorrhage or midline shift. There is diffuse age-related cerebra l atrophy and chronic small vessel ischemic change noted.
[2019-11-23] MEDS ORDERED: HYDROmorphone 1 MG/ML 1 ML SYRINGE IVP STA ×2 (17:30→19:33)
--- NOTE | 2019-11-23 18:30 | ED ---
General Adult HPI - General Chief complaint: Recheck/Abnormal Lab/Rx Stated complaint: Hypertension Time Seen by Provider: 11/23/19 13:45 Source: patient Mode of arrival: wheelchair Limitations: no limitations - History of Present Illness Initial comments: The patient is a 61. Female with past history of MS who presents to the emergency department with reported headache. She is currently under treatment for an MS exacerbation. She's under the care of Dr. Medeiros. She did receive 3 days worth of IV steroid. As her exacerbation was worse than normal he did complete 2 additional days which she was suppose to receive over the weekend. She went up to have her infusion done today when the infusion staff noted that she was extremely hypertensive. She was reporting a headache and therefore they sent her down to emergency room for evaluation. She does report a history of hypertension. She has been taking her medications as directed. She is unsure if the hypertension is related to her recent infusion. She does admit to photophobia. Denies any visual changes. No blunt head trauma. No neck pain or stiffness. No fevers or chills. She is also reporting to paraspinal lumbar back pain. States it's been chronic for her. She does see Dr. Medeiros for this. She is scheduled for a EMG in December for this pain. She does have muscle relaxers at home. She did take a Percocet last night and did have improvement in her pain. She had no pain with this morning. Denies any weakness in her lower extremities. No additional symptoms to include back pain, flank pain, abdominal pain, nausea or vomiting. There are no alleviating, precipitating or modifying factors - Related Data Home Medications Medication Instructions Recorded Confirmed DULoxetine HCL [Cymbalta] 60 mg PO BID 09/18/16 11/22/19 Metoprolol Succinate [Toprol XL] 100 mg PO DAILY 09/18/16 11/22/19 Topiramate [Topamax] 100 mg PO BID 09/18/16 11/22/19 oxyCODONE-APAP 10-325MG [Percocet 1 tab PO Q6HR PRN 09/18/16 11/22/19 10-325 mg] Benazepril HCl 20 mg PO DAILY 05/21/17 11/22/19 Ascorbic Acid [Vitamin C] 1,000 mg PO DAILY 01/23/19 01/23/19 Butalb/APAP/Caff 50-325-40Mg 1 tab PO Q6H PRN 01/23/19 01/23/19 [Fioricet 50-325-40] Cholecalciferol [Vitamin D3] 2,000 unit PO DAILY 01/23/19 11/22/19 Levothyroxine Sodium [Synthroid] 125 mcg PO DAILY 01/23/19 11/22/19 Modafinil [Provigil] 100 mg PO BID 01/23/19 01/23/19 Multivitamins, Thera [Multivitamin 1 tab PO DAILY 01/23/19 11/22/19 (formulary)] Omeprazole 20 mg PO DAILY 01/23/19 11/22/19 Primidone [Mysoline] 50 mg PO HS 01/23/19 11/22/19 Vitamin A 8,000 unit PO DAILY 01/23/19 11/22/19 Vitamin C/Biotin [Hair, Skin and 1 tab PO DAILY 01/23/19 11/22/19 Nails] tiZANidine HCL [Zanaflex] 4 mg PO BID PRN 01/23/19 11/22/19 Previous Rx's Medication Instructions Recorded Losartan [Cozaar] 50 mg PO BID #60 tab 11/19/15 Cephalexin [Keflex] 500 mg PO BID #10 cap 11/23/19 Allergies Allergy/AdvReac Type Severity Reaction Status Date / Time No Known Allergies Allergy Verified 11/22/19 13:30 Review of Systems ROS Statement: Those systems with pertinent positive or pertinent negative responses have been documented in the HPI. ROS Other: All systems not noted in ROS Statement are negative. Past Medical History Past Medical History: Fibromyalgia, GERD/Reflux, Hypertension, Thyroid Disorder Additional Past Medical History / Comment(s): Lung cancer, Thyroid cancer, Known cancerous lesions to right lung - no tx yet ., LAST CHEMO & RADIATION APPROX 8 YEARS AGO., MIGRAINES, HX OF DIVERTICULITIS. History of Any Multi-Drug Resistant Organisms: None Reported Past Surgical History: Hysterectomy, Tubal Ligation Additional Past Surgical History / Comment(s): thyroidectomy for ca, three lumpectomies from breast, ectopic , left frontal lobe of lung, portion of colon removed. Cervical infusion Past Anesthesia/Blood Transfusion Reactions: No Reported Reaction Past Psychological History: Anxiety Smoking Status: Former smoker Past Alcohol Use History: None Reported Past Drug Use History: None Reported - Past Family History Mother Family Medical History: Cancer, Diabetes Mellitus, Fibromyalgia, Thyroid Disorder Additional Family Medical History / Comment(s): heart issues. THYROID CANCER Father Family Medical History: Cancer Additional Family Medical History / Comment(s): lung cancer General Exam Limitations: no limitations General appearance: alert, in no apparent distress Head exam: Present: atraumatic, normocephalic, normal inspection Eye exam: Present: normal appearance, PERRL, EOMI. Absent: scleral icterus, conjunctival injection, periorbital swelling Pupils: Present: normal accommodation ENT exam: Present: normal exam, mucous membranes moist Neck exam: Present: normal inspection. Absent: tenderness, meningismus, lymphadenopathy Respiratory exam: Present: normal lung sounds bilaterally. Absent: respiratory distress, wheezes, rales, rhonchi, stridor Cardiovascular Exam: Present: regular rate, normal rhythm, normal heart sounds. Absent: systolic murmur, diastolic murmur, rubs, gallop, clicks GI/Abdominal exam: Present: soft, normal bowel sounds. Absent: distended, tenderness, guarding, rebound, rigid Extremities exam: Present: normal inspection, full ROM, normal capillary refill, other (5/5 muscle strength in the bilateral lower extremities). Absent: tenderness, pedal edema, joint swelling, calf tenderness Back exam: Present: normal inspection, paraspinal tenderness Neurological exam: Present: alert, oriented X3, CN II-XII intact Psychiatric exam: Present: normal affect, normal mood Skin exam: Present: warm, dry, intact, normal color. Absent: rash Course Vital Signs 11/23/19 11/23/19 11/23/19 13:44 14:24 16:00 Temperature 98.1 F 98.2 F Pulse Rate 65 66 Respiratory 16 18 Rate Blood Pressure 195/106 201/118 147/87 O2 Sat by Pulse 100 99 Oximetry 11/23/19 11/23/19 11/23/19 17:00 17:51 19:51 Temperature 98.1 F Pulse Rate 78 75 Respiratory 18 18 Rate Blood Pressure 141/77 162/92 155/98 O2 Sat by Pulse 100 100 Oximetry EKG Findings - EKG Comments: EKG Findings:: EKG demonstrates a sinus bradycardia with a ventricular rate of 58. OR interval 138. QRS 86. QTC of 400. No acute ST segment patient's or depressions concerning for ischemic changes. Medical Decision Making - Medical Decision Making On arrival the patient is placed in room 9. A thorough history and physical exam was performed. The patient does arrive extremely hypertensive. I did recommend laboratory studies and a CT the patient's brain. WBC of 14.4. Plate lets 453. Coagulation studies are normal. CMP is unremarkable. Urinalysis shows large leukocyte esterase, 6 white blood cells and occasional bacteria. I reevaluated the patient. She was given 20 mg of hydralazine for blood pressure control. She does have return of her back pain which she states is worse when she is ever had it. Because of this she is given 0.5 mg Dilaudid and sent for imaging of her back. I am concerned for MS lesions or stress fracture because of her high dose steroids. CT of abdomen and pelvis demonstrates no acute findings. Lumbar spine demonstrates mild degenerative changes. The patient is requesting a stronger dose of Dilaudid stating that he half doses never help her. She was given a full dose. I discussed the diagnosis and treatment options. The patient's headache and back pain is completely resolved at this time. She does feel comfortable with discharge. I will not change her blood pressure medications at this time as I am unsure if it is secondary to her high steroid dosing. She did not receive her infusion today. She was a follow-up appointment with her primary care physician tomorrow. I informed her that she must have her blood pressure reevaluated. Patient understood this. If she has any new or worsening symptoms she should return to the emergency room. Patient was discharged home ambulatory in stable condition - Lab Data Result diagrams: 11/23/19 16:08 11/23/19 16:08 Lab Results 11/23/19 11/23/19 11/23/19 Range/Units 16:08 16:08 16:08 WBC 14.4 H (3.8-10.6) k/uL RBC 4.23 (3.80-5.40) m/uL Hgb 13.6 (11.4-16.0) gm/dL Hct 43.6 (34.0-46.0) % MCV 103.1 H (80.0-100.0) fL MCH 32.1 (25.0-35.0) pg MCHC 31.1 (31.0-37.0) g/dL RDW 13.3 (11.5-15.5) % Plt Count 453 H (150-450) k/uL Neutrophils % 77 % Lymphocytes % 14 % Monocytes % 6 % Eosinophils % 1 % Basophils % 1 % Neutrophils # 11.1 H (1.3-7.7) k/uL Lymphocytes # 2.1 (1.0-4.8) k/uL Monocytes # 0.8 (0-1.0) k/uL Eosinophils # 0.2 (0-0.7) k/uL Basophils # 0.1 (0-0.2) k/uL Macrocytosis Slight PT 10.7 (9.0-12.0) sec INR 1.0 (<1.2) APTT 22.5 (22.0-30.0) sec Sodium 139 (137-145) mmol/L Potassium 4.5 (3.5-5.1) mmol/L Chloride 103 (98-107) mmol/L Carbon Dioxide 30 (22-30) mmol/L Anion Gap 6 mmol/L BUN 17 (7-17) mg/dL Creatinine 0.79 (0.52-1.04) mg/dL Est GFR (CKD-EPI)AfAm >90 (>60 ml/min/1.73 sqM) Est GFR (CKD-EPI)NonAf 81 (>60 ml/min/1.73 sqM) Glucose 88 (74-99) mg/dL Calcium 9.1 (8.4-10.2) mg/dL Total Bilirubin 0.5 (0.2-1.3) mg/dL AST 20 (14-36) U/L ALT 28 (4-34) U/L Alkaline Phosphatase 73 (38-126) U/L Total Protein 7.1 (6.3-8.2) g/dL Albumin 4.3 (3.5-5.0) g/dL TSH 0.806 (0.465-4.680) mIU/L Urine Color Urine Appearance (Clear) Urine pH (5.0-8.0) Ur Specific [place] (1.001-1.035) Urine Protein (Negative) Urine Glucose (UA) (Negative) Urine Ketones (Negative) Urine Blood (Negative) Urine Nitrite (Negative) Urine Bilirubin (Negative) Urine Urobilinogen (<2.0) mg/dL Ur Leukocyte Esterase (Negative) Urine RBC (0-5) /hpf Urine WBC (0-5) /hpf Amorphous Sediment (None) /hpf Urine Bacteria (None) /hpf Urine Mucus (None) /hpf 11/23/19 Range/Units 18:00 WBC (3.8-10.6) k/uL RBC (3.80-5.40) m/uL Hgb (11.4-16.0) gm/dL Hct (34.0-46.0) % MCV (80.0-100.0) fL MCH (25.0-35.0) pg MCHC (31.0-37.0) g/dL RDW (11.5-15.5) % Plt Count (150-450) k/uL Neutrophils % % Lymphocytes % % Monocytes % % Eosinophils % % Basophils % % Neutrophils # (1.3-7.7) k/uL Lymphocytes # (1.0-4.8) k/uL Monocytes # (0-1.0) k/uL Eosinophils # (0-0.7) k/uL Basophils # (0-0.2) k/uL Macrocytosis PT (9.0-12.0) sec INR (<1.2) APTT (22.0-30.0) sec Sodium (137-145) mmol/L Potassium (3.5-5.1) mmol/L Chloride (98-107) mmol/L Carbon Dioxide (22-30) mmol/L Anion Gap mmol/L BUN (7-17) mg/dL Creatinine (0.52-1.04) mg/dL Est GFR (CKD-EPI)AfAm (>60 ml/min/1.73 sqM) Est GFR (CKD-EPI)NonAf (>60 ml/min/1.73 sqM) Glucose (74-99) mg/dL Calcium (8.4-10.2) mg/dL Total Bilirubin (0.2-1.3) mg/dL AST (14-36) U/L ALT (4-34) U/L Alkaline Phosphatase (38-126) U/L Total Protein (6.3-8.2) g/dL Albumin (3.5-5.0) g/dL TSH (0.465-4.680) mIU/L Urine Color Light Yellow Urine Appearance Clear (Clear) Urine pH 7.0 (5.0-8.0) Ur Specific [place] 1.006 (1.001-1.035) Urine Protein Negative (Negative) Urine Glucose (UA) Negative (Negative) Urine Ketones Negative (Negative) Urine Blood Negative (Negative) Urine Nitrite Negative (Negative) Urine Bilirubin Negative (Negative) Urine Urobilinogen <2.0 (<2.0) mg/dL Ur Leukocyte Esterase Large H (Negative) Urine RBC <1 (0-5) /hpf Urine WBC 6 H (0-5) /hpf Amorphous Sediment Few H (None) /hpf Urine Bacteria Occasional H (None) /hpf Urine Mucus Rare H (None) /hpf Disposition Clinical Impression: Back spasm, Headache, Accelerated hypertension, Acute UTI Disposition: HOME SELF-CARE Condition: Stable Additional Instructions: Please follow-up with your primary care doctor tomorrow at your scheduled appointment. Also follow-up with Dr. Solorzano. Return to the emergency room for any new worsening symptoms Prescriptions: Cephalexin [Keflex] 500 mg PO BID #10 cap Is patient prescribed a controlled substance at d/c from ED?: No Referrals: Hilario Tierney MD [Primary Care Provider] - 1-2 days Lanre Medeiros MD [Medical Doctor] - 1-2 days Time of Disposition: 19:35
[2019-11-23 18:53] LABS: Amorphous Sediment,Urine Few /hpf; Appearance,Urine Clear (Clear); Bacteria,Urine Occasional /hpf; Bilirubin,Urine Negative (Negative); Blood,Urine Negative (Negative); Color,Urine Light Yellow; Glucose,Urine (UA) Negative (Negative); Ketones,Urine Negative (Negative); Leukocyte Esterase,Urine Large (Negative); Mucus,Urine Rare /hpf; Nitrite,Urine Negative (Negative); Protein,Urine Negative (Negative); RBC,Urine <1 /hpf (0-5); Specific Gravity,Urine 1.006 (1.001-1.035); Urobilinogen,Urine <2.0 mg/dL (<2.0); WBC,Urine 6 /hpf (0-5)
--- NOTE | 2019-11-23 19:01 | CT ---
EXAMINATION TYPE: CT lumbar spine w con DATE OF EXAM: 11/23/2019 COMPARISON: None HISTORY: Abdominal/back pain. Hx lung/thyroid ca. Pt states a tumor was recently found on brain. Hx t ubal/hysterectomy. CT DLP: 1626.2 mGycm Automated exposure control for dose reduction was used. CONTRAST: Performed with IV Contrast, patient injected with 100 mL of Isovue 370. Multiple axial sections were obtained from T12 to S2 vertebra with intravenous contrast. Lumbar vertebra have fairly normal alignment. There is hypertrophic facet arthropathy in the lower jake mbar spine more noticeable at L4-5. There is a few millimeter anterior subluxation of L4 in relation L5. There is no compression fracture. There is no lumbar paraspinal mass. I see no focal bone destruc tion. There is no pathologic enhancement. Sacroiliac joints appear normal. There is no spinal stenosi s. IMPRESSION: There are mild degenerative changes in the facet joints. Minimal degenerative first-degree L4-5 spond ylolisthesis. No fracture. No evidence of metastatic disease. No spinal stenosis.
--- NOTE | 2019-11-23 19:09 | CT ---
EXAMINATION TYPE: CT abdomen pelvis w con DATE OF EXAM: 11/23/2019 COMPARISON: 07/24/2015 HISTORY: Abdominal/back pain. Hx lung/thyroid ca. Pt states a tumor was recently found on brain. Hx t ubal/hysterectomy. CT DLP: 1626.2 mGycm Automated exposure control for dose reduction was used. CONTRAST: Performed with IV Contrast, patient injected with 100 mL of Isovue 370. Multiple axial sections were obtained from the diaphragm to the floor the pelvis with intravenous con trast. FINDINGS: Lung bases are clear. There is no pleural effusion. Heart size is normal. There is no pericardial eff usion. Stomach is intact. Liver spleen pancreas gallbladder appear normal. Bile ducts are not dilated. There is no adrenal mass. Kidneys show satisfactory contrast opacification. There is no hydronephrosi s. Bladder distends smoothly. Ureters are not dilated. There is no retroperitoneal adenopathy. There is no inguinal hernia. There is no free fluid in the pelvis. There are some sigmoid diverticula. Ther e is no sign of diverticulitis. Lumbar vertebra have fairly normal alignment. There is no compression fracture. There is no mesenteric edema. There is no ascites or free air. There is no sign of a bowel obstructio n. IMPRESSION: Minimal sigmoid diverticulosis. No diverticulitis. Degenerative mild first-degree L4-5 spondylolisthe sis is new compared to old exam. No sign of acute abdomen and pelvis. I do not see a cause for abdomi nal pain.
[2019-11-23] MEDS ORDERED: CEPHALEXIN 500MG STARTER PACK 4 CAP BTL PO STA (19:36)
[2019-11-23 19:54] VITALS: BP 155/98; PULSE 75; TEMP 98.1
== END 2019-11-23 20:05 | disposition home or self-care (01) ==
LOC: EC 13:43
DX: I10 Essential (primary) hypertension (principal); N39.0 Urinary tract infection, site not specified; R51 Headache; M62.830 Muscle spasm of back; K21.9 Gastro-esophageal reflux disease without esophagitis; E07.9 Disorder of thyroid, unspecified; F41.9 Anxiety disorder, unspecified; Z79.890 Hormone replacement therapy; Z79.899 Other long term (current) drug therapy; Z87.891 Personal history of nicotine dependence; Z85.850 Personal history of malignant neoplasm of thyroid; Z85.118 Personal history of other malignant neoplasm of bronchus and lung
CPT/HCPCS: 99284; 96374; 96375; 96376 ×2; 36415; 93005; 80053; 84443; 85025; 85610; 85730; 81001; 72132; 70450; 74177; J0360; J1170 ×2; Q9967

== ENCOUNTER → 2019-12-23 | Outpatient (CLI) | payer MEDICARE ==
[2019-12-23 13:38] LABS: Basophils % (A) 0 %; Eosinophils # (A) 0.2 k/uL (0-0.7); Eosinophils % (A) 1 %; HGB 13.9 gm/dL (11.4-16.0); Lymphocytes # (A) 1.8 k/uL (1.0-4.8); Lymphocytes % (A) 14 %; MCH 32.3 pg (25.0-35.0); MCHC 30.9 g/dL (31.0-37.0); MCV 104.6 fL (80.0-100.0); Macrocytosis Moderate; Mean Platelet Volume 7.1; Monocytes # (A) 0.4 k/uL (0-1.0); Monocytes % (A) 3 %; Neutrophils # (A) 10.3 k/uL (1.3-7.7); Neutrophils % (A) 80 %; Platelet Count 493 k/uL (150-450); RBC 4.31 m/uL (3.80-5.40); RDW 13.9 % (11.5-15.5)
[2019-12-23 13:45] LABS: Partial Thromboplastin Time 23.7 sec (22.0-30.0); Prothrombin Time 10.4 sec (9.0-12.0)
[2019-12-23 18:19] LABS: African American GFR (CKD) 78.9 (60.0-200.0); Albumin 4.4 g/dL (3.80-4.90); Albumin/Globulin Ratio 2.32 (1.60-3.17); Anion Gap 6.6 mmol/L (4.00-12.00); BUN/Creat Ratio 22.22 Ratio (12.00-20.00); Calcium 9.4 mg/dL (8.7-10.3); Carbon Dioxide 29.4 mmol/L (21.6-31.8); Globulin 1.9 g/dL (1.6-3.3); Potassium 4.8 mmol/L (3.5-5.5); Total Bilirubin 0.4 mg/dL (0.2-1.2); Total Protein 6.3 g/dL (6.2-8.2)
[2019-12-23 20:20] LABS: Hepatitis B Core IgM Non-Reactive (Non-Reactive); Hepatitis B Surface Antibody Reactive (Non-Reactive); Hepatitis B Surface Antigen Non-Reactive (Non-Reactive)
== END | disposition home or self-care (01) ==
LOC: LABWHC1 12:43
PROVIDERS: ATTEND Psychiatry & Neurology Neurology
DX: G35 Multiple sclerosis (principal); R53.83 Other fatigue; D32.9 Benign neoplasm of meninges, unspecified
CPT/HCPCS: 36415; 80053; 85025; 85610; 85730; 86704; 86705; 86706; 86787; 87340

== ENCOUNTER → 2020-01-21 | Outpatient (CLI) | payer MEDICARE ==
[2020-01-21 10:47] LABS: HCT 40.8 % (34.0-46.0); HGB 13.1 gm/dL (11.4-16.0); MCH 33.7 pg (25.0-35.0); MCHC 32.2 g/dL (31.0-37.0); MCV 104.8 fL (80.0-100.0); Macrocytosis Moderate; Mean Platelet Volume 7.1; Platelet Count 493 k/uL (150-450); RDW 14.2 % (11.5-15.5); WBC 4.8 k/uL (3.8-10.6)
[2020-01-21 11:07] LABS: Eosinophils # (M) 0.24 k/uL (0-0.7); Lymphocytes # (M) 1.01 k/uL (1.0-4.8); Monocytes # (M) 0.19 k/uL (0-1.0); Neutrophils # (M) 3.26 k/uL (1.3-7.7); Neutrophils % (M) 68 %; Nucleated Red Blood Cells 0 /100 WBC (0-0); Total Cells Counted 100
== END | disposition home or self-care (01) ==
LOC: LABWHC1 10:13
PROVIDERS: ATTEND Psychiatry & Neurology Neurology
DX: Z51.81 Encounter for therapeutic drug level monitoring (principal); Z79.899 Other long term (current) drug therapy
CPT/HCPCS: 36415; 85025

== ENCOUNTER → 2020-04-22 | Outpatient (CLI) | payer MEDICARE ==
[2020-04-22 14:09] LABS: HCT 44.8 % (34.0-46.0); HGB 13.9 gm/dL (11.4-16.0); MCH 32.7 pg (25.0-35.0); MCHC 31.1 g/dL (31.0-37.0); MCV 105.1 fL (80.0-100.0); Macrocytosis Slight; Mean Platelet Volume 7.2; Platelet Count 538 k/uL (150-450); RBC 4.27 m/uL (3.80-5.40); RDW 12.9 % (11.5-15.5)
[2020-04-22 19:10] LABS: African American GFR (CKD) 90.9 (60.0-200.0); Non-African American GFR(CKD) 78.5 (60.0-200.0)
== END | disposition home or self-care (01) ==
LOC: LABWHC1 12:28
PROVIDERS: ATTEND Radiology Radiation Oncology
DX: C79.31 Secondary malignant neoplasm of brain (principal)
CPT/HCPCS: 36415; 82565; 84520; 85027

== ENCOUNTER → 2020-04-27 | Outpatient (CLI) | payer MEDICARE ==
[2020-04-27 12:55] LABS: Prothrombin Time 10.4 sec (9.0-12.0)
== END | disposition home or self-care (01) ==
LOC: LABWHC1 12:01
PROVIDERS: ATTEND Radiology Radiation Oncology
DX: C79.31 Secondary malignant neoplasm of brain (principal)
CPT/HCPCS: 36415; 85610; 85730

== ENCOUNTER → 2020-08-16 | Outpatient (CLI) | payer MEDICARE ==
--- NOTE | 2020-08-16 16:27 | CT ---
EXAMINATION TYPE: CT chest w con DATE OF EXAM: 08/16/2020 COMPARISON: HISTORY: Lung nodule CT DLP: 295.5 mGycm Automated exposure control for dose reduction was used. CONTRAST: CT scan of the chest is performed with IV Contrast, patient injected with 100 mL of Isovue 300. FINDINGS: LUNGS: The lungs are stable, there is no pleural effusion or pneumothorax seen. The pleural-parenchym al changes within the lungs are stable The tracheobronchial tree is patent. MEDIASTINUM: There are no greater than 1 cm hilar or mediastinal lymph nodes. No pericardial effusi on is seen. Postop changes are again noted. Within the pulmonary artery on axial image #26 and 25 th ere is a linear focus of increased density, question artifact, difficult to exclude weblike projectio n. AORTA: No additional significant abnormality is seen. OTHER: No additional significant abnormality is seen. IMPRESSION: The lungs are stable. Questionable web artifact within the pulmonary artery as described .
== END | disposition home or self-care (01) ==
LOC: RADCTMAIN 08:03
DX: R91.1 Solitary pulmonary nodule (principal)
CPT/HCPCS: 71260; Q9967

== ENCOUNTER 2020-08-26 06:30 | Day surgery (SDC) | payer MEDICARE ==
[2020-08-24 11:42] VITALS: BMI 26.6
[2020-08-26] MEDS ORDERED: SODIUM CHLORIDE 0.9% 500 ML 500 ML IV ONE (06:47)
[2020-08-26] MEDS ORDERED: ALPRAZolam 0.5 MG TAB ONE (06:58)
[2020-08-26 08:40] VITALS: RESP 16; TEMP 98.1
[2020-08-26] MEDS ORDERED: fentaNYL (PF) 50 MCG/ML 2 ML AMP ONE (09:01)
[2020-08-26] MEDS: BENZOCAINE SPRAY 1 CAN MUCOUS MEM ONE ×2 (09:34→09:49)
[2020-08-26] MEDS ORDERED: fentaNYL (PF) 50 MCG/ML 2 ML AMP IV ONE (09:49)
[2020-08-26] MEDS ORDERED: MIDAZOLAM 2 MG/2 ML VIAL IV ONE ×2 (09:49→09:51)
[2020-08-26] MEDS ORDERED: SODIUM CHLORIDE 0.9% 1,000 ML IV SCH (10:15)
--- NOTE | 2020-08-26 10:53 | ECHOT ---
TRANSESOPHAGEAL ECHOCARDIOGRAM INDICATION: Mitral regurgitation. REFERRING PHYSICIAN: Dr. Tierney. PROCEDURE NOTE: After obtaining informed consent, transesophageal echocardiogram is performed in left lateral position using an Omni plane probe. Local and IV sedation were obtained with 3 mg of Versed and 25 mcg of fentanyl. The patient tolerated the procedure well without any obvious immediate complications. Patient received moderate conscious sedation. Total sedation time was 7 minutes. FINDINGS: 1. Mitral valve appears anatomically normal. There is mild to moderate mitral regurgitation noted. 2. Aortic valve is a 3-leaflet valve. There is no evidence of aortic stenosis or regurgitation. There is mild tricuspid regurgitation. Interatrial septum, there is no evidence of bjus-al-auocn shunt by color-flow Doppler or vvjgw-hx-gyun shunt by contrast study. 3. Left atrium appears mildly enlarged. Right atrium and right ventricle seen within normal limits. 4. Left ventricle has normal size and systolic function. 5. Aortic root appears normal. CONCLUSION: Mild to moderate mitral regurgitation. PLAN: The patient does not have severe mitral regurgitation and does not require any further evaluation for the mitral regurgitation at this time. MMODL / IJN: [id number] /
[2020-08-26 11:14] VITALS: BP 144/77; PULSE 70
== END 2020-08-26 11:16 | disposition home or self-care (01) ==
LOC: CATHCVL 06:30
PROVIDERS: ATTEND Internal Medicine Cardiovascular Disease
DX: I08.1 Rheumatic disorders of both mitral and tricuspid valves (principal); G35 Multiple sclerosis; I11.0 Hypertensive heart disease with heart failure; I50.32 Chronic diastolic (congestive) heart failure; E89.0 Postprocedural hypothyroidism; F32.9 Major depressive disorder, single episode, unspecified; Z85.850 Personal history of malignant neoplasm of thyroid; Z85.118 Personal history of other malignant neoplasm of bronchus and lung; Z90.2 Acquired absence of lung [part of]; Z79.51 Long term (current) use of inhaled steroids; Z79.899 Other long term (current) drug therapy; Z79.890 Hormone replacement therapy; Z87.891 Personal history of nicotine dependence; Z82.49 Family history of ischemic heart disease and other diseases of the circulatory system
CPT/HCPCS: 93312; 93320; 93325; J2250; J3010

== ENCOUNTER → 2020-10-19 | Outpatient (CLI) | payer MEDICARE ==
[2020-10-19 23:57] LABS: African American GFR (CKD) 68.9 (60.0-200.0); Non-African American GFR(CKD) 59.5 (60.0-200.0)
== END | disposition home or self-care (01) ==
LOC: LABWHC1 12:33
PROVIDERS: ATTEND Radiology Radiation Oncology
DX: C70.0 Malignant neoplasm of cerebral meninges (principal)
CPT/HCPCS: 36415; 82565; 84520

== ENCOUNTER → 2020-11-09 | Outpatient (CLI) | payer MEDICARE ==
--- NOTE | 2020-11-09 11:30 | MM ---
Reason for exam: clinical finding. Last mammogram was performed 5 years and 1 month ago. History: Patient is postmenopausal and has history of other cancer at age 50. Family history of breast cancer in grandmother and breast cancer in aunt. Chemotherapy, January 30, 2006. Benign excisional biopsy of the left breast, April 03, 2001. Benign excisional biopsy of the left breast, November 10, 1998. Excisional biopsy of the left breast. Took hormonal contraceptives for 10 years beginning at age 21. Taking other hormone for 3 years beginning at age 50. Indicated problem(s): pain in the left breast. Physical Findings: Nurse Summary: 0.5cm nodule in the left breast at 9 o'clock (nurse db). MG 3D Diag Mammo W/Cad EYAD Bilateral CC and MLO view(s) were taken. XCCL view(s) were taken of the left breast. Prior study comparison: October 12, 2015, bilateral MG screening mammo w CAD. December 12, 2011, bilateral digital screening mammo w/CAD. The breast tissue is heterogeneously dense. This may lower the sensitivity of mammography. No significant new findings when compared with previous films. These results were verbally communicated with the patient and result sheet given to the patient on 11/09/20. ASSESSMENT: Benign, BI-RAD 2 RECOMMENDATION: Follow-up diagnostic mammogram of both breasts in 1 year.
== END | disposition home or self-care (01) ==
LOC: RADMAMWWP 10:21
PROVIDERS: ATTEND Surgery
DX: N64.4 Mastodynia (principal)
CPT/HCPCS: 77066; G0279; 77062

== ENCOUNTER → 2020-12-24 | Outpatient (CLI) | payer MEDICARE | END | disposition home or self-care (01) | LOC: LABWHC1 14:47 | PROVIDERS: ATTEND Nurse Practitioner Acute Care | DX: Z53.9 Procedure and treatment not carried out, unspecified reason (principal) | CPT/HCPCS: 36415; 82040; 82042; 82784; 83916 ==

== ENCOUNTER → 2021-01-31 | Outpatient (CLI) | payer MEDICARE ==
[2021-01-31 19:21] LABS: Basophils # (A) 0.19 X 10*3/uL (0.00-0.10); Basophils % (A) 2.5 %; Eosinophils # (A) 0.29 X 10*3/uL (0.04-0.35); Eosinophils % (A) 3.8 %; HCT 40.6 % (37.2-46.3); HGB 12.8 g/dL (12.0-15.0); Lymphocytes # (A) 1.41 X 10*3/uL (0.90-5.00); Lymphocytes % (A) 18.5 %; MCH 32.5 pg (27.0-32.0); MCHC 31.5 g/dL (32.0-37.0); Mean Platelet Volume 9.4 fL (9.5-12.2); Monocytes # (A) 0.61 X 10*3/uL (0.20-1.00); Neutrophils # (A) 5.09 X 10*3/uL (1.80-7.70); Neutrophils % (A) 66.7 %; Platelet Count 495 X 10*3/uL (140-440); RBC 3.94 X 10*6/uL (4.10-5.20); RDW 14.6 % (11.5-14.5); WBC 7.63 X 10*3/uL (4.50-10.00)
[2021-01-31 19:28] LABS: % Iron Saturation 24.77 (12.00-45.00); African American GFR (CKD) 90.3 (60.0-200.0); Albumin 4.6 g/dL (3.80-4.90); Albumin/Globulin Ratio 2.42 (1.60-3.17); Anion Gap 7.3 mmol/L (4.00-12.00); BUN/Creat Ratio 17.5 Ratio (12.00-20.00); Calcium 9.4 mg/dL (8.7-10.3); Carbon Dioxide 26.7 mmol/L (21.6-31.8); Globulin 1.9 g/dL (1.6-3.3); Non-African American GFR(CKD) 77.9 (60.0-200.0); Potassium 4.5 mmol/L (3.5-5.5); Total Bilirubin 0.4 mg/dL (0.2-1.2); Total Protein 6.5 g/dL (6.2-8.2)
[2021-01-31 19:36] LABS: T4, Free (Free Thyroxine) 1.1 ng/dL (0.80-1.80)
== END | disposition home or self-care (01) ==
LOC: LABWHC1 11:36
PROVIDERS: ATTEND Nurse Practitioner Acute Care
DX: E55.9 Vitamin D deficiency, unspecified (principal); R53.83 Other fatigue; R41.3 Other amnesia; Z51.81 Encounter for therapeutic drug level monitoring
CPT/HCPCS: 36415; 80053; 82306; 82607; 83540; 83550; 84207; 84439; 84443; 84481; 85025

== ENCOUNTER → 2021-05-06 | Outpatient (CLI) | payer MEDICARE ==
--- NOTE | 2021-05-11 15:53 | MR ---
EXAMINATION TYPE: MR brain wo/w con DATE OF EXAM: 05/06/2021 COMPARISON: MRI 11/02/2020 from outside institution HISTORY: Benign olfactory groove meningioma TECHNIQUE: Multiplanar, multisequence images of the brain and brainstem is performed without and with IV contras t, utilizing 7 mL intravenous Gadavist . FINDINGS: Diffusion weighted images demonstrate no evidence of a recent infarct or other diffusion ab normality. There is no extra-axial fluid collection. The previously identified mass along the olfact ory groove is again noted and shows intense enhancement following contrast administration, isointense appearance on T2 weighted images and T1-weighted images. The lesion measures approximately the same as on previous exam, there is extensive motion artifact, cephalad to caudal dimension approximately 1 2 mm on coronal images, 15.6 mm on sagittal image postcontrast upper 80, 14 mm in anterior posterior dimension on sagittal image 82 postcontrast FLAIR images show hyperintensity in the inferior aspect o f the right frontal lobe, corresponding hyperintensity and T2-weighted images. Periventricular, peric allosal, subcortical scattered hyperintensities are present on inversion recovery T2-weighted sequenc es, white matter signal changes are similar to prior exam. The ventricular system and cisternal spac es are normal in size and appearance. The brain volume is age appropriate. Midline structures demonstrate stable morphology. The craniocervical junction appears within normal limits. Post contrast images demonstrate no abnormal enhancement. The dural venous sinuses appear pa tent. The visualized sinuses are clear and the globes are intact. IMPRESSION: There is no significant interval change evident. Stable meningioma as previously describe dNathaniel
== END | disposition home or self-care (01) ==
LOC: RADMRIMAIN 10:22
PROVIDERS: ATTEND Radiology Radiation Oncology
DX: D32.9 Benign neoplasm of meninges, unspecified (principal)
CPT/HCPCS: 70553; A9585

== ENCOUNTER → 2022-03-23 | Outpatient (CLI) | payer MEDICARE ==
[2022-03-23 22:29] LABS: HCT 45.6 % (37.2-46.3); HGB 14.2 g/dL (12.0-15.0); MCH 32.7 pg (27.0-32.0); MCHC 31.1 g/dL (32.0-37.0); MCV 105.1 fL (80.0-97.0); Mean Platelet Volume 9.6 fL (9.5-12.2); NRBC Per 100 WBC 0 /100 WBCS (0.0-0.0); Platelet Count 398 X 10*3/uL (140-440); RBC 4.34 X 10*6/uL (4.10-5.20); RDW 15.5 % (11.5-14.5); WBC 7.52 X 10*3/uL (4.50-10.00)
[2022-03-23 23:37] LABS: ALT 38 U/L (8-44); AST 21 U/L (13-35); African American GFR (CKD) 56.1 (60.0-200.0); BUN/Creat Ratio 12.37 Ratio (12.00-20.00); Blood Urea Nitrogen 14.6 mg/dL (9.0-27.0); Calcium 9.2 mg/dL (8.7-10.3); Carbon Dioxide 24.7 mmol/L (20.0-27.5); Chloride 105 mmol/L (96-109); Chol/HDL Ratio 3.44 Ratio; Glucose 76 mg/dL (70-110); LDL Cholesterol,Calculated 144.6 mg/dL (0.0-131.0); Non-African American GFR(CKD) 48.4 (60.0-200.0); Potassium 4.6 mmol/L (3.5-5.5); Sodium 140 mmol/L (135-145)
== END | disposition home or self-care (01) ==
LOC: LABWHC1 15:54
PROVIDERS: ATTEND Internal Medicine Cardiovascular Disease
DX: E78.2 Mixed hyperlipidemia (principal)
CPT/HCPCS: 36415; 80048; 80061; 84443; 84450; 84460; 85027